=== PATIENT | female | born 1990 | race Caucasian/White ===

== ENCOUNTER 2016-12-17 16:40 | Emergency (ER) | payer OTHER ==
[~2016-12-17] VITALS: Ht 160 cm; Wt 63.5 kg
[~2016-12-17 16:40] MED LIST: AMBIEN5 MG PO; AUGMENTIN 875 M1 TAB PO; BACTRIM DS 8001 TA1 PO; CELEBREX50 MG PO; DEPO-PROVER150 MG/M2 IM; FLEXERIL5 MG PO; FLONASE ALLERG9.9 ML NS; HYDROCODONE BIT1 T11 PO; IBUPROFEN 30 M800 MG PO; MACROBID100 M1 PO; MOTRIN800 MG PO; PERCOCET 325 MG1 TA2 PO; PRENATAL VITAMI1 TAB PO; VISTARIL50 MG PO; XANAX0.25 MG PO; ZITHROMAX Z PA250 MG PO; ZOFRAN ODT4 MG SL; ZYRTEC10 M1 PO
[2016-12-17] MEDS ORDERED: MEDROL DOSEPAK4 MG PO (17:08)
[2016-12-17] MEDS ORDERED: AUGMENTIN 875875 MG PO (17:08)
== END 2016-12-17 19:27 | disposition home or self-care (01) ==
LOC: ED 16:40
DX: J40 Bronchitis, not specified as acute or chronic (principal); J01.90 Acute sinusitis, unspecified; F17.200 Nicotine dependence, unspecified, uncomplicated; R06.02 Shortness of breath

== ENCOUNTER 2017-02-18 22:06 | Emergency (ER) | payer OTHER ==
[~2017-02-18] VITALS: Ht 160 cm; Wt 63.5 kg
[~2017-02-18 22:06] MED LIST changes: +AUGMENTIN 875875 MG PO; +MEDROL DOSEPAK4 MG PO
[2017-02-18 23:01] LABS: BILIRUBIN NEGATIVE (NEGATIVE); BLOOD NEGATIVE (NEGATIVE); CLARITY SL CLOUDY (CLEAR); COLOR YELLOW (YELLOW); GLUCOSE NEGATIVE (NEGATIVE); KETONE NEGATIVE (NEGATIVE); LEUKO ESTERASE 3+ (NEGATIVE); NITRITE NEGATIVE (NEGATIVE); SPECIFIC GRAVITY 1.015 (1.005-1.030); UROBILINOGEN 0.2 E.U./dl (0.2-1.0)
[2017-02-18 23:20] LABS: EPITHELIAL CELLS 40-45
[2017-02-18 23:21] LABS: BACTERIA TRACE; WBC 31-40 wbc/hpf (0-5)
[2017-02-18] MEDS ORDERED: VIBRAMYCIN100 MG PO (23:23)
== END 2017-02-18 23:46 | disposition home or self-care (01) ==
LOC: ED 22:06
PROVIDERS: Physician Assistant
DX: A64 Unspecified sexually transmitted disease (principal); F17.200 Nicotine dependence, unspecified, uncomplicated; R10.30 Lower abdominal pain, unspecified

== ENCOUNTER 2017-02-25 18:49 | Emergency (ER) | payer OTHER ==
[~2017-02-25] VITALS: Ht 160 cm; Wt 63.5 kg
[~2017-02-25 18:49] MED LIST changes: +VIBRAMYCIN100 MG PO
[2017-02-25] MEDS ORDERED: ZYRTEC10 MG PO (19:41)
[2017-02-25] MEDS ORDERED: AMOXICILLIN500 M2 PO (19:41)
== END 2017-02-25 20:04 | disposition home or self-care (01) ==
LOC: ED 18:49
DX: J01.90 Acute sinusitis, unspecified (principal); F17.200 Nicotine dependence, unspecified, uncomplicated

== ENCOUNTER 2017-05-17 19:39 | Emergency (ER) | payer OTHER ==
[~2017-05-17] VITALS: Ht 160 cm; Wt 65.8 kg
[~2017-05-17 19:39] MED LIST changes: +AMOXICILLIN500 M2 PO; +ZYRTEC10 MG PO
[2017-05-17] MEDS ORDERED: LAMICTAL100 MG PO (19:59)
[2017-05-17 20:10] LABS: BILIRUBIN NEGATIVE (NEGATIVE); BLOOD NEGATIVE (NEGATIVE); CLARITY CLEAR (CLEAR); COLOR YELLOW (YELLOW); GLUCOSE NEGATIVE (NEGATIVE); KETONE TRACE (NEGATIVE); LEUKO ESTERASE 1+ (NEGATIVE); NITRITE NEGATIVE (NEGATIVE); PH 5.5 (5.0-9.0); SPECIFIC GRAVITY <= 1.005 (1.005-1.030); UROBILINOGEN 0.2 E.U./dl (0.2-1.0)
[2017-05-17 20:25] LABS: BACTERIA TRACE
[2017-05-17 20:46] LABS: ALBUMIN 4.1 gm/dl (3.1-4.5); ALKALINE PHOSPHATASE 63 U/L (45-117); BUN 11 mg/dl (7-24); CHLORIDE 107 mmol/L (98-107); CREATININE 0.97 mg/dL (0.55-1.02); POTASSIUM 3.8 mmol/L (3.5-5.1); SGOT/AST 12 IU/L (3-35); SGPT/ALT 14 U/L (12-78); SODIUM 141 mmol/L (136-145); TOTAL PROTEIN 6.8 gm/dL (6.4-8.2)
[2017-05-17] MEDS ORDERED: CYCLOBENZAPRINE10 MG PO (21:12)
[2017-05-17] MEDS ORDERED: FLAGYL500 MG PO (21:12)
== END 2017-05-17 21:09 | disposition home or self-care (01) ==
LOC: ED 19:39
PROVIDERS: Emergency Medicine; Physician Assistant
DX: A59.8 Trichomoniasis of other sites (principal); M62.830 Muscle spasm of back; M54.6 Pain in thoracic spine; Z87.440 Personal history of urinary (tract) infections; Z79.899 Other long term (current) drug therapy

== ENCOUNTER 2018-03-10 12:24 | Emergency (ER) | payer SELFPAY ==
[~2018-03-10] VITALS: Ht 160 cm; Wt 65.8 kg
[~2018-03-10 12:24] MED LIST changes: +CYCLOBENZAPRINE10 MG PO; +FLAGYL500 MG PO; +LAMICTAL100 MG PO
[2018-03-10 14:05] LABS: BASO % 0.4 % (0.0-1.0); EOS # 0.2 10*3/uL (0.0-0.4); EOS % 1.4 % (1.0-4.0); HEMATOCRIT 36.9 % (37.0-47.0); HEMOGLOBIN 11.4 g/dl (12.0-16.0); LYMPH # 2.5 10*3/uL (1.3-4.4); LYMPH % 22.2 % (27.0-41.0); MEAN CELL VOLUME 85.8 fl (81.0-99.0); MEAN CORPUSCULAR HGB 26.5 pg (27.0-31.0); MEAN CORPUSCULAR HGB CONC 30.9 g/dl (33.0-37.0); MEAN PLATELET VOLUME 10.5 fl (9.6-12.3); MONO # 0.6 10*3/uL (0.1-1.0); MONO % 4.8 % (3.0-9.0); NEUT # 8.1 10*3/uL (2.3-7.9); NEUT % 70.8 % (47.0-73.0); PLATELET COUNT AUTOMATED 219 10*3/uL (130-400); RED CELL DISTRI WIDTH 15.5 % (0-14.5); WHITE BLOOD COUNT 11.4 10*3/uL (4.8-10.8)
[2018-03-10 14:33] LABS: ALBUMIN 3.6 gm/dl (3.1-4.5); ALKALINE PHOSPHATASE 64 U/L (45-117); BUN 10 mg/dl (7-24); CHLORIDE 107 mmol/L (98-107); CREATININE 0.88 mg/dL (0.55-1.02); POTASSIUM 4.2 mmol/L (3.5-5.1); SGOT/AST 11 IU/L (3-35); SGPT/ALT 15 U/L (12-78); SODIUM 139 mmol/L (136-145); TOTAL PROTEIN 6.2 gm/dL (6.4-8.2)
[2018-03-10 14:35] LABS: B-hCG (QUALITATIVE) NEGATIVE (NEGATIVE)
[2018-03-10 14:48] LABS: BILIRUBIN NEGATIVE (NEGATIVE); BLOOD 3+ (NEGATIVE); CLARITY SL CLOUDY (CLEAR); COLOR YELLOW (YELLOW); GLUCOSE NEGATIVE (NEGATIVE); KETONE NEGATIVE (NEGATIVE); LEUKO ESTERASE TRACE (NEGATIVE); NITRITE NEGATIVE (NEGATIVE); SPECIFIC GRAVITY 1.015 (1.005-1.030); UROBILINOGEN 0.2 E.U./dl (0.2-1.0)
[2018-03-10 14:53] LABS: BACTERIA 4+
[2018-03-10 14:54] LABS: EPITHELIAL CELLS 21-30
[2018-03-10 14:55] LABS: RBC 16-20 rbc/hpf (0-2)
[2018-03-10] MEDS ORDERED: TESSALON PERLE100 MG PO (15:11)
== END 2018-03-10 15:12 | disposition home or self-care (01) ==
LOC: ED 12:24
PROVIDERS: Internal Medicine
DX: B34.9 Viral infection, unspecified (principal); R42 Dizziness and giddiness; R20.0 Anesthesia of skin; Z79.899 Other long term (current) drug therapy

== ENCOUNTER → 2020-03-17 | Outpatient (CLI) | payer BC ==
[~2020-03-17] MED LIST changes: +TESSALON PERLE100 MG PO
== END | disposition home or self-care (01) ==
LOC: COVID19 11:39
PROVIDERS: ATTEND Internal Medicine
DX: Z20.828 Contact with and (suspected) exposure to other viral communicable diseases (principal)

== ENCOUNTER → 2020-04-23 | Outpatient (CLI) | payer BC | END | disposition home or self-care (01) | LOC: COVID19 13:45 | PROVIDERS: ATTEND Internal Medicine | DX: Z11.52 Encounter for screening for COVID-19 (principal) ==

== ENCOUNTER 2022-04-30 16:23 | Emergency (ER) | payer OTHER ==
[~2022-04-30] VITALS: Ht 157.4 cm; Wt 79.4 kg
== END 2022-04-30 17:26 | disposition home or self-care (01) ==
LOC: ED 16:23
DX: B34.9 Viral infection, unspecified (principal); Z98.890 Other specified postprocedural states; Z87.891 Personal history of nicotine dependence; Z20.822 Contact with and (suspected) exposure to COVID-19

== ENCOUNTER 2022-05-19 15:02 | Emergency (ER) | payer OTHER | END 2022-05-19 15:52 | disposition left against medical advice (07) | LOC: ED 15:02 | DX: Z53.21 Procedure and treatment not carried out due to patient leaving prior to being seen by health care provider (principal) ==

== ENCOUNTER 2022-05-19 21:04 | Emergency (ER) | payer OTHER ==
[~2022-05-19] VITALS: Ht 157.4 cm; Wt 79.4 kg
== END 2022-05-19 23:18 | disposition home or self-care (01) ==
LOC: ED 21:04
DX: B34.9 Viral infection, unspecified (principal); Z20.822 Contact with and (suspected) exposure to COVID-19; Z98.890 Other specified postprocedural states; Z87.891 Personal history of nicotine dependence

== ENCOUNTER 2022-07-14 19:00 | Emergency (ER) | payer OTHER ==
[~2022-07-14] VITALS: Ht 160 cm; Wt 79.4 kg
[2022-07-14 19:40] LABS: BASO % 0.2 % (0.0-1.0); EOS # 0.3 10*3/uL (0.0-0.4); EOS % 3.1 % (1.0-4.0); HEMATOCRIT 38.6 % (37.0-47.0); LYMPH # 2.7 10*3/uL (1.3-4.4); LYMPH % 28.4 % (27.0-41.0); MEAN CELL VOLUME 103.8 fl (81.0-99.0); MEAN CORPUSCULAR HGB 33.9 pg (27.0-31.0); MEAN CORPUSCULAR HGB CONC 32.6 g/dl (33.0-37.0); MEAN PLATELET VOLUME 10.9 fl (9.6-12.3); MONO # 0.6 10*3/uL (0.1-1.0); MONO % 5.8 % (3.0-9.0); NEUT # 5.9 10*3/uL (2.3-7.9); NEUT % 62.3 % (47.0-73.0); PLATELET COUNT AUTOMATED 241 10*3/uL (130-400); RED BLOOD COUNT 3.72 10*6/uL (4.10-5.10); RED CELL DISTRI WIDTH 17.9 % (0-14.5); WHITE BLOOD COUNT 9.5 10*3/uL (4.8-10.8)
[2022-07-14 19:51] LABS: ACT PARTIAL THROMBO TIME 29.1 SECONDS (20.0-32.1)
[2022-07-14 19:55] LABS: ALKALINE PHOSPHATASE 76 U/L (46-116); BUN 6 mg/dl (9-23); CHLORIDE 108 mmol/L (98-107); POTASSIUM 4.2 mmol/L (3.4-5.1); SGPT/ALT 11 U/L (10-49); TOTAL PROTEIN 6.3 gm/dL (6.0-8.0)
[2022-07-14] MEDS ORDERED: ZANAFLEX4 MG PO (21:44)
[2022-07-14] MEDS ORDERED: NAPROSYN500 MG PO (21:44)
== END 2022-07-14 21:50 | disposition home or self-care (01) ==
LOC: ED 19:00
PROVIDERS: Emergency Medicine
DX: R07.89 Other chest pain (principal); F41.9 Anxiety disorder, unspecified; F32.A Depression, unspecified; Z98.890 Other specified postprocedural states

== ENCOUNTER 2023-03-02 14:34 | Emergency (ER) | payer OTHER ==
[~2023-03-02] VITALS: Wt 80.7 kg
[~2023-03-02 14:34] MED LIST changes: +NAPROSYN500 MG PO; +ZANAFLEX4 MG PO
[2023-03-02] MEDS ORDERED: AMOX-CLAV 875-1 EACH PO (17:03)
== END 2023-03-02 17:19 | disposition home or self-care (01) ==
LOC: ED 14:34
DX: S01.412A Laceration without foreign body of left cheek and temporomandibular area, initial encounter (principal); S01.152A Open bite of left eyelid and periocular area, initial encounter; F41.9 Anxiety disorder, unspecified; F32.A Depression, unspecified; W54.0XXA Bitten by dog, initial encounter; Y93.89 Activity, other specified; Y92.89 Other specified places as the place of occurrence of the external cause; Y99.8 Other external cause status

== ENCOUNTER → 2023-03-03 | Outpatient (CLI) | payer OTHER ==
[~2023-03-03] MED LIST changes: +AMOX-CLAV 875-1 EACH PO
== END | disposition home or self-care (01) ==
LOC: WOUNDCARE 04:43
PROVIDERS: ATTEND Nurse Practitioner Family
DX: S01.85XA Open bite of other part of head, initial encounter (principal); L03.90 Cellulitis, unspecified; L98.9 Disorder of the skin and subcutaneous tissue, unspecified; J42 Unspecified chronic bronchitis; F41.9 Anxiety disorder, unspecified; W54.0XXA Bitten by dog, initial encounter; Y93.89 Activity, other specified; Y92.89 Other specified places as the place of occurrence of the external cause; Y99.8 Other external cause status

== ENCOUNTER → 2023-03-10 | Outpatient (CLI) | payer OTHER | END | disposition home or self-care (01) | LOC: WOUNDCARE 00:28 | PROVIDERS: ATTEND Nurse Practitioner Family | DX: S01.85XD Open bite of other part of head, subsequent encounter (principal); L98.9 Disorder of the skin and subcutaneous tissue, unspecified; L03.90 Cellulitis, unspecified; J42 Unspecified chronic bronchitis; F41.9 Anxiety disorder, unspecified; W54.0XXD Bitten by dog, subsequent encounter ==

== ENCOUNTER → 2023-03-17 | Outpatient (CLI) | payer OTHER | LOC: WOUNDCARE 00:50 | PROVIDERS: ATTEND Nurse Practitioner Family | DX: Z53.21 Procedure and treatment not carried out due to patient leaving prior to being seen by health care provider (principal) ==

== ENCOUNTER 2023-07-04 12:17 | Emergency (ER) | payer OTHER ==
[~2023-07-04] VITALS: Ht 160 cm; Wt 68.0 kg
== END 2023-07-04 13:38 | disposition home or self-care (01) ==
LOC: ED 12:17
DX: S92.411A Displaced fracture of proximal phalanx of right great toe, initial encounter for closed fracture (principal); X78.8XXA Intentional self-harm by other sharp object, initial encounter; Y93.89 Activity, other specified; Y92.89 Other specified places as the place of occurrence of the external cause; Y99.8 Other external cause status

== ENCOUNTER 2023-07-16 14:04 | Emergency (ER) | payer OTHER ==
[~2023-07-16] VITALS: Ht 160 cm; Wt 77.6 kg
[2023-07-16] MEDS ORDERED: Ondansetron Hydrochloride 4 MG TAB SL ONE (14:35)
[2023-07-16] MEDS ORDERED: Acetaminophen/Hydrocodone 5 MG/325 MG TABLET PO ONE (14:35)
[2023-07-16] MEDS ORDERED: Motrin,Rufen800 MG PO (15:17)
[2023-07-16] MEDS ORDERED: ONDANSETRON4 MG SL (15:17)
== END 2023-07-16 15:57 | disposition home or self-care (01) ==
LOC: ED 14:04
DX: S30.0XXA Contusion of lower back and pelvis, initial encounter (principal); S99.922A Unspecified injury of left foot, initial encounter; R11.0 Nausea; F41.9 Anxiety disorder, unspecified; F32.A Depression, unspecified; W10.9XXA Fall (on) (from) unspecified stairs and steps, initial encounter; Y93.89 Activity, other specified; Y92.89 Other specified places as the place of occurrence of the external cause; Y99.8 Other external cause status

== ENCOUNTER 2023-08-22 11:18 | Emergency (ER) | payer OTHER ==
[~2023-08-22] VITALS: Ht 160 cm; Wt 72.6 kg
[~2023-08-22 11:18] MED LIST changes: +Motrin,Rufen800 MG PO; +ONDANSETRON4 MG SL
[2023-08-22] MEDS ORDERED: ALBUTEROL SULFATE HF (11:31)
[2023-08-22] MEDS ORDERED: MUCUS RELIEF600 MG PO (11:31)
[2023-08-22] MEDS ORDERED: VIBRAMYCIN100 MG PO (11:32)
[2023-08-22 11:57] LABS: HEMATOCRIT 37.3 % (37.0-47.0); MEAN CELL VOLUME 108.7 fl (81.0-99.0); MEAN CORPUSCULAR HGB 35.6 pg (27.0-31.0); MEAN CORPUSCULAR HGB CONC 32.7 g/dl (33.0-37.0); PLATELET COUNT AUTOMATED 220 10*3/uL (130-400); RED BLOOD COUNT 3.43 10*6/uL (4.10-5.10); RED CELL DISTRI WIDTH 21.1 % (0-14.5); WHITE BLOOD COUNT 10.6 10*3/uL (4.8-10.8)
[2023-08-22 12:05] LABS: MANUAL DIFF REFLEX YES
[2023-08-22 12:17] LABS: BUN 14 mg/dl (9-23); CHLORIDE 112 mmol/L (98-107); POTASSIUM 3.7 mmol/L (3.4-5.1)
[2023-08-22 12:18] LABS: PLATELET SUFFICIENCY NORMAL (NORMAL); POLYCHROMASIA SLIGHT; TOTAL CELLS COUNTED 100 #CELLS
[2023-08-22] MEDS ORDERED: PREDNISONE20 M1 PO (13:08)
[2023-08-22] MEDS ORDERED: methylPREDNISolone sod succ 125 MG VIAL IM ONE (13:10)
== END 2023-08-22 13:20 | disposition home or self-care (01) ==
LOC: ED 11:18
PROVIDERS: Nurse Practitioner Family
DX: J40 Bronchitis, not specified as acute or chronic (principal); Z20.822 Contact with and (suspected) exposure to COVID-19; F41.9 Anxiety disorder, unspecified; Z87.42 Personal history of other diseases of the female genital tract; Z79.899 Other long term (current) drug therapy; Z79.2 Long term (current) use of antibiotics

== ENCOUNTER 2023-10-11 19:24 | Emergency (ER) | payer OTHER ==
[~2023-10-11] VITALS: Ht 160 cm; Wt 65.8 kg
[~2023-10-11 19:24] MED LIST changes: +ALBUTEROL SULFATE HF; +MUCUS RELIEF600 MG PO; +PREDNISONE20 M1 PO
[2023-10-11 20:16] LABS: BASO % 0.1 % (0.0-1.0); EOS # 0.1 10*3/uL (0.0-0.4); EOS % 1.9 % (1.0-4.0); HEMATOCRIT 29.2 % (37.0-47.0); LYMPH # 2.1 10*3/uL (1.3-4.4); LYMPH % 31.3 % (27.0-41.0); MEAN CELL VOLUME 106.6 fl (81.0-99.0); MEAN CORPUSCULAR HGB CONC 32.9 g/dl (33.0-37.0); MONO # 0.3 10*3/uL (0.1-1.0); MONO % 4.6 % (3.0-9.0); NEUT # 4.2 10*3/uL (2.3-7.9); NEUT % 61.8 % (47.0-73.0); PLATELET COUNT AUTOMATED 79 10*3/uL (130-400); RED BLOOD COUNT 2.74 10*6/uL (4.10-5.10); RED CELL DISTRI WIDTH 23.3 % (0-14.5); WHITE BLOOD COUNT 6.8 10*3/uL (4.8-10.8)
[2023-10-11 20:27] LABS: BILIRUBIN Negative (Negative); BLOOD Negative (Negative); CLARITY Clear (Clear); COLOR Yellow (Yellow); GLUCOSE Negative (Negative); KETONE Negative (Negative); LEUKO ESTERASE 1+ (Negative); NITRITE Negative (Negative)
[2023-10-11 20:28] LABS: BUN 16 mg/dl (9-23); CHLORIDE 112 mmol/L (98-107); POTASSIUM 3.8 mmol/L (3.4-5.1)
[2023-10-11 20:52] LABS: BACTERIA 2+; MUCOUS 1+
[2023-10-11] MEDS ORDERED: IOHEXOL 300 MG/ML 100 ML VIAL IV ONE (21:15)
== END 2023-10-11 23:30 | disposition home or self-care (01) ==
LOC: ED 19:24
PROVIDERS: Physician Assistant Medical
DX: S30.0XXA Contusion of lower back and pelvis, initial encounter (principal); Z79.899 Other long term (current) drug therapy; Z79.2 Long term (current) use of antibiotics; X58.XXXA Exposure to other specified factors, initial encounter; Y93.89 Activity, other specified; Y92.89 Other specified places as the place of occurrence of the external cause; Y99.8 Other external cause status

== ENCOUNTER 2023-10-16 23:42 | Emergency (ER) | payer OTHER ==
[~2023-10-16] VITALS: Ht 160 cm; Wt 68.0 kg
[2023-10-17 00:51] LABS: HEMATOCRIT 27.2 % (37.0-47.0); MEAN CELL VOLUME 105.8 fl (81.0-99.0); MEAN CORPUSCULAR HGB CONC 33.1 g/dl (33.0-37.0); PLATELET COUNT AUTOMATED 101 10*3/uL (130-400); RED BLOOD COUNT 2.57 10*6/uL (4.10-5.10); RED CELL DISTRI WIDTH 23.7 % (0-14.5); WHITE BLOOD COUNT 6.3 10*3/uL (4.8-10.8)
[2023-10-17 00:53] LABS: MANUAL DIFF REFLEX YES
[2023-10-17] MEDS ORDERED: SODIUM CHLORIDE 0.9% 1,000 ML IV ONE (00:55)
[2023-10-17 01:00] LABS: ACT PARTIAL THROMBO TIME 27.1 SECONDS (20.0-32.1)
[2023-10-17 01:10] LABS: ALKALINE PHOSPHATASE 63 U/L (46-116); BUN 9 mg/dl (9-23); CHLORIDE 114 mmol/L (98-107); POTASSIUM 3.9 mmol/L (3.4-5.1); SGPT/ALT 17 U/L (5-49); TOTAL PROTEIN 5.6 gm/dL (6.0-8.0)
[2023-10-17 01:22] LABS: LIPASE 30 U/L (12-53)
[2023-10-17 01:22] LABS: PLATELET SUFFICIENCY LOW (NORMAL); SCHISTOCYTES FEW; TOTAL CELLS COUNTED 100 #CELLS
[2023-10-17 01:23] LABS: B-hCG (QUALITATIVE) NEGATIVE (NEGATIVE)
[2023-10-17] MEDS ORDERED: IOHEXOL 350 MG/ML 100 ML VIAL IV ONE (02:20)
[2023-10-17] MEDS ORDERED: SODIUM CHLORIDE 0.9% 100 ML BAG IV ONE (02:20)
[2023-10-17 02:22] LABS: BILIRUBIN Negative (Negative); BLOOD Negative (Negative); CLARITY Clear (Clear); COLOR Yellow (Yellow); GLUCOSE Negative (Negative); KETONE Negative (Negative); LEUKO ESTERASE Negative (Negative); NITRITE Negative (Negative); SPECIFIC GRAVITY 1.015 (1.001-1.030)
[2023-10-17 02:28] LABS: URINE AMPHETAMINES Negative (1000ng/ml); URINE BARBITURATES Negative (200ng/ml); URINE BENZODIAZEPINES Negative (200ng/ml); URINE CANNABINOIDS (THC) Negative (50ng/ml); URINE COCAINE Negative (300ng/ml); URINE METHADONE Negative (300ng/ml); URINE OPIATES Negative (300ng/ml); URINE PHENCYCLIDINE Negative (25ng/ml)
[2023-10-17 02:29] LABS: EPITHELIAL CELLS 16-20
[2023-10-17 02:30] LABS: RBC 0-2 rbc/hpf (0-2); WBC 0-2 wbc/hpf (0-5)
[2023-10-17] MEDS ORDERED: LEVOFLOXACIN500 MG PO (04:59)
[2023-10-17] MEDS ORDERED: LEVOFLOXACIN 500 MG TAB PO ONE (05:00)
== END 2023-10-17 05:02 | disposition home or self-care (01) ==
LOC: ED 23:42
PROVIDERS: Emergency Medicine
DX: R42 Dizziness and giddiness (principal); R11.0 Nausea; F41.9 Anxiety disorder, unspecified; F32.A Depression, unspecified; Z87.891 Personal history of nicotine dependence

== ENCOUNTER → 2023-10-20 | Outpatient (CLI) | payer OTHER ==
[~2023-10-20] MED LIST changes: +LEVOFLOXACIN500 MG PO
== END | disposition home or self-care (01) ==
LOC: US 01:48
PROVIDERS: ATTEND Nurse Practitioner Primary Care
DX: N13.30 Unspecified hydronephrosis (principal)

== ENCOUNTER 2024-10-17 23:32 | Emergency (ER) | payer OTHER ==
[~2024-10-17] VITALS: Ht 160 cm; Wt 78.0 kg
[2024-10-18] MEDS ORDERED: METHOCARBAMOL 500 MG TAB PO ONE (00:35)
[2024-10-18] MEDS ORDERED: NAPROXEN250 MG PO (01:39)
[2024-10-18] MEDS ORDERED: METHOCARBAMOL500 M1 PO (01:39)
== END 2024-10-18 01:56 | disposition home or self-care (01) ==
LOC: ED 23:32
DX: R10.9 Unspecified abdominal pain (principal); R07.81 Pleurodynia; Z79.899 Other long term (current) drug therapy